=== PATIENT | female | born 2000 | race African-American/Black ===

== ENCOUNTER 2020-11-24 09:15 | Outpatient (RCR) | payer BC, MEDICAID, SELFPAY ==
--- NOTE | 2020-11-10 10:10 | PTOPEVAL ---
Thank you for referring Drea Kline to [facility].? The patient is scheduled to be seen for therapy? 1x/week for 6 weeks. Please review, sign, date and return this plan of care MARIA ELENA. I agree with and certify that the following plan of care is medically necessary. Referring Physician Date Attending Provider: Kathie Rocha MD Referring Provider: Kathie Rocha MD Evaluation Information Problem Diagnosis scoliosis, back pain Onset 3 yrs Subjective Information Reports she has been having Query Text:As Reported By Patient/ back pain for a long time. Family Denies previous therapy. Denies exercise program. 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 Reports increased pain with prolonged standing and walking. Denies pain with lifting, legal support manager or ADL's. She is able to stand 1 hr before pain increases. Diagnostic Tests X-Rays For This Problem Yes: thoracic scoliosis Previous Treatments Previous Treatments For This Problem no Pain Assessment Pain Scale Used Numeric (1 - 10) Self Report Pain Assessment Bilateral Lower Back Reported Pain Level 2 Pain Description Aching Pain Frequency Chronic,Continuous Lowest Pain Intensity 2 Greatest Pain Intensity 8 Pain Aggravating Factors Prolonged Position,Walking, Weight Bearing/Standing Cervical and Lumbar ROM Lumbar Flexion Active Floor Query Text:Hands to: Lateral Flexion below lateral knee region Query Text:Active Hands to: Lumbar ROM WNL Lumbar Comments slight pain with ext Upper Extremity Range of Motion General Upper Extremity Range of Motion WNL/Left,WNL/Right Lower Extremity Range of Motion General Lower Extremity Range of Motion WNL/Left,WNL/Right Cervical and Lumbar Muscle Testing Lumbar Strength Upper Abdominal Strength 3 Fair Lower Abdominal Strength 3 Fair Upper Back Extension 4 Good Lower Back Extension 4 Good Lumbar Functional Strength Comments unable to maint trunk in midline with seated marching or standing SLS Lower Extremity Muscle Strength Testing Gross Lower Extremity Strength grossly 4/5 gretel LE for hip flex, knee ext and flex gretel hip ext: 3+/5, hip abd: 3/ 5 Upper Extremity Muscle Strength Testing Gross Upper Extremity Strength Comments grossly 4-/5 for all motion, no pain Muscle Length Testing Two-Joint Hip Flexor Shortened Muscles Short
--- NOTE | 2020-11-17 09:48 | PCPTNOTE ---
Patient no show for apt this date. Called and left voicemail of missed apt and reminded of next scheduled apt on november 24 at 9:15am.
--- NOTE | 2020-12-01 09:34 | PCPTNOTE ---
Pt called and canceled appointment this date due to being sick.
--- NOTE | 2020-12-15 09:16 | PCPTNOTE ---
Addendum entered by Nydia Gonzalez, DIGITAL IMAGER 12/15/20 09:26: Pt called 12/01/20 at 8:30 am and canceled both 12/01/20 and 12/08/20 appointments for 09:15am. This was the Pt's first and second cancels. Original Note: Late entry: Pt called on 12/08/20 at 08:30am to cancel appointment at 09:15am due to being sick. This was Pt's second cancel.
--- NOTE | 2020-12-15 09:26 | PCPTNOTE ---
Patient did not show up for scheduled appointment this date.Called pt due to repeated no show/cancelled visits. Will remove remaining visits and D/C due to exceeding cancelation policy.
--- NOTE | 2020-12-15 09:28 | PCPTNOTE ---
Admitting Provider: Attending Provider: Kathie Rocha Patient:Drea Kline Date of :2000 Discharge Note Patient has not returned for any further treatments since 11/24/2020, therefore she will be discharged at this time. Patient?s initial visit was on 11/10/2020 09:00 and she had a total of 2 visits and 4 no show/canceled visits. The goals have been not met due to poor compliance with attending therapy. Thank you for referring this patient to [facility]. Please review, sign, date and return this discharge summary MARIA ELENA. I have been updated about the patient's current status and I agree with discharge from the above service at this time. Referring Physician Date
== END 2020-12-15 13:23 | disposition home or self-care (01) ==
LOC: ANHPT 09:15
DX: M41.9 Scoliosis, unspecified (principal)
CPT/HCPCS: 97014; 97110; 97140; 97161; G0283

== ENCOUNTER 2021-08-08 18:04 | Emergency (ER) | payer BC, SELFPAY ==
--- NOTE | ~2021-08-08 | XR_ITS ---
EXAMINATION: XR chest 2V DATE: 08/08/2021 19:15 INDICATION: Chest pain and 7 days of cough TECHNIQUE: frontal and lateral views of the chest were obtained. COMPARISON: None FINDINGS: The lungs are clear with no focal airspace opacities, pulmonary edema, pleural effusion or pneumothor ax. The cardiomediastinal silhouette is normal. Visualized bones and soft tissues are unremarkable. IMPRESSION: 1. Normal chest radiograph. Reviewed, dictated and finalized at location A. ENTIALING COORDINATOR IMPRESSION: 1. Normal chest radiograph.
[2021-08-08 18:40] VITALS: BP 133/80; PULSE 91; RESP 16; TEMP 36.8; O2SAT 100
--- NOTE | 2021-08-08 18:59 | ED.URI ---
HPI - URI/Sore Throat General Chief Complaint: Upper Respiratory Infection Stated Complaint: cp/cough Time Seen by Provider: 08/08/21 18:59 Source: patient Mode of arrival: ambulatory Limitations: no limitations History of Present Illness HPI Narrative: Drea Kline is a 20-year-old female comes to [facility] with a cough x 7 days -states that she coughed so hard that her chest started hurting at night she the cough is worse. She has been feeling physically well for the last couple of days. States that her fever and body aches left after the first day or 2 of her symptoms Related Data Allergies Allergy/AdvReac Type Severity Reaction Status Date / Time No Known Allergies Allergy Verified 08/08/21 19:09 Review of Systems Review of Systems: CONSTITUTIONAL: Denies fever, chills, sweats. EYES: Denies visual changes, redness, discharge. ENT: Denies rhinorrhea, is congestion, has sore throat, otalgia. CARDIOVASCULAR: Denies chest pain, palpitations, edema. Chest wall pain RESPIRATORY: Denies dyspnea, wheezing, cough GASTROINTESTINAL: Denies abdominal pain, nausea, vomiting, diarrhea. GENITOURINARY: Denies dysuria, hematuria, abnormal discharge SKIN: Denies rash or itching. NEUROLOGIC: Denies numbness, or focal weakness. PSYCHIATRIC: Denies anxiety or depression. [facility] Past Medical History Medical History No acute medical problems Social History Social History (Updated 08/08/21 @ 19:05 by Corrine Cisneros CNP) Smoking status: Never smoker Alcohol intake: never Comments At time of signature, I agree with nursing past medical, surgical, social and family history. There is no relevant family history pertinent to the presenting complaint. Exam Narrative: GENERAL: This is a well-nourished, well-developed patient, in mild distress. HEAD: normocephalic, atraumatic. EYES: Sclera clear/white. Vision is grossly intact. EARS: External ears normal, auditory canals clear and without drainage, TMs normal without perforation. Hearing grossly intact. NOSE: External nose normal without nasal discharge, nares without redness, no rhinorrhea. THROAT: Mucous membranes moist, posterior pharynx erythema NECK: Neck supple, non-tender CARDIOVASCULAR: Regular rate and rhythm without murmurs, gallops, or rubs. RESPIRATORY: Clear to auscultation. Breath sounds equal bilaterally. No wheezes, rales, or rhonchi. GASTROINTESTINAL: Abdomen soft, non-tender, SKIN: warm, intact with no suspicious lesions or rash, good texture and turgor. NEURO: awake, alert, and oriented to person, place and time. There were no obvious focal neurologic abnormalities. Steady gait EXTREMITIES: Normal range of motion. BACK: Nontender without deformity Course Course Emergency Course: Patient is here for complaints of cough and chest heaviness that started 7 days ago when she had a fever and upper respiratory symptoms have improved with cough is remained she is now 7 days into the illness and states that chest heaviness is worse when she lays down at night Chest x-ray done-normal chest film Started on prednisone, Zithromax, Zyrtec, albuterol inhaler Vital Signs Vital signs: Vital Signs Temperature 98.3 F 08/08/21 18:40 Pulse Rate 91 08/08/21 18:40 Respiratory Rate 16 08/08/21 18:40 Blood Pressure 133/80 08/08/21 18:40 Pulse Oximetry 100 08/08/21 18:40 Temperature 98.3 F 08/08/21 18:40 Pulse Rate 91 08/08/21 18:40 Respiratory Rate 16 08/08/21 18:40 Blood Pressure 133/80 08/08/21 18:40 Pulse Oximetry 100 08/08/21 18:40 MDM - URI/Sore Throat Differential Diagnosis Differential diagnosis: Likely upper respiratory infection, viral infection, bronchitis, pharyngitis and other Critical Care Time Critical Care Time Critical Care Time: No Discharge Plan Discharge Clinical Impression: Bronchitis Patient Disposition: Home, Self-Care Condition: Stable
== END 2021-08-08 19:49 | disposition home or self-care (01) ==
PROVIDERS: Emergency Provider Nurse Practitioner
DX: J40 Bronchitis, not specified as acute or chronic (principal)
CPT/HCPCS: 71046; 99213; G0463

== ENCOUNTER 2021-09-17 11:27 | Outpatient (CLI) | payer BC, SELFPAY ==
--- NOTE | ~2021-09-17 | US_ITS ---
US breast RT complete 09/17/2021 11:47 Indication: Palpable right breast lump which has recently increased in size Procedure: High-resolution complete right breast ultrasound Comparison: No prior studies for comparison. Findings: At 9:00, 8 cm from the nipple there is an irregular shaped heterogeneous hypoechoic mass wi th internal vascularity and mixed posterior attenuation measuring 3.5 x 3 x 2.4 cm. No other masses a re identified. Impression: 1: Irregular shaped hypoechoic right breast mass at 9:00, 8 cm from the nipple measuring 3.5 cm maxim um dimension. BI-RADS CATEGORY 4-SUSPICIOUS ABNORMALITY RECOMMENDATION: Ultrasound-guided right breast biopsy recommended. Reviewed, dictated and finalized at location A. T END SOFTWARE ENGINEER Impression: 1: Irregular shaped hypoechoic right breast mass at 9:00, 8 cm from the nipple measuring 3.5 cm maximum dimension. BI-RADS CATEGORY 4-SUSPICIOUS ABNORMALITY RECOMMENDATION: Ultrasound-guided right breast biopsy recommended.
== END 2021-09-17 11:28 | disposition home or self-care (01) ==
LOC: ANHIMG 11:30
PROVIDERS: Visit Provider Obstetrics & Gynecology
DX: N63.10 Unspecified lump in the right breast, unspecified quadrant (principal); R92.8 Other abnormal and inconclusive findings on diagnostic imaging of breast
CPT/HCPCS: 76641

== ENCOUNTER 2021-09-28 10:21 | Outpatient (CLI) | payer BC, SELFPAY ==
[2021-09-28 10:50] LABS: Alanine Aminotransferase 20 U/L (4-35); Albumin Level 4.9 g/dL (3.5-5.1); Alkaline Phosphatase 56 U/L (38-126); Anion Gap 6 mmol/L (8-16); Aspartate Amino Transferase 29 U/L (14-36); Bilirubin,Total 0.4 mg/dL (0.2-1.3); Blood Urea Nitrogen 12 mg/dL (7-17); Calcium 9.4 mg/dL (8.4-10.2); Carbon Dioxide 26 mmol/L (22-30); Chloride 106 mmol/L (98-107); Estimated Glomerular Filt Rate > 60; Glucose 96 mg/dL (65-110); Sodium 138 mmol/L (137-145)
[2021-10-01 14:59] LABS: Prolactin 7.4 ng/mL (***)
[2021-10-03 07:26] LABS: Testosterone Total 16 ng/dL (2-45)
== END 2021-09-28 10:22 | disposition home or self-care (01) ==
LOC: ANHLAB 10:23
PROVIDERS: Visit Provider Internal Medicine
DX: Z00.00 Encounter for general adult medical examination without abnormal findings (principal); R68.82 Decreased libido
CPT/HCPCS: 36415; 80053; 84146; 84403; 84443

== ENCOUNTER 2021-10-02 09:19 | Outpatient (CLI) | payer BC, SELFPAY ==
--- NOTE | ~2021-10-02 | MMUS_ITS ---
MM post biopsy invasive RT, US breast biopsy RT w image EXAMINATION: US GUIDED NEEDLE BIOPSY WITH VAC UUM ASSISTANCE DATE: 10/02/2021 10:12 DIRECTOR MARKET RESEARCH INDICATION: Right breast mass seen on prior examination. Ultrasound-guided core biopsy is requested to evaluate for malignancy. TECHNIQUE AND FINDINGS: The risks and potential benefits of the procedure were discussed with the patient, and written inform ed consent was obtained. After sterile preparation of the right breast, 1% lidocaine was utilized fo r local anesthesia. 1% lidocaine with epinephrine was used for deep anesthesia. A 10G vacuum-assisted biopsy gun needle was advanced through to the outer edge of the region of inter est from a lateral approach utilizing sonographic guidance. A total of 5 tissue core samples were ob tained through the lesion. An Inrad tissue marker clip was then placed at the biopsy site. Hemostasi s was achieved. The patient tolerated procedure well and there was no evidence of immediate complication. The patien t was given verbal instructions partly is from the department. Right breast mammograms to document t issue marker clip placement. The tissue samples were submitted to surgical pathology for histologic a nalysis. IMPRESSION: 1. Successful ultrasound-guided vacuum-assisted biopsy of right breast mass with tissue marker place ment. Please refer to pathology report for histologic analysis. Reviewed, dictated and finalized at location A. CTOR MARKET RESEARCH IMPRESSION: 1. Successful ultrasound-guided vacuum-assisted biopsy of right breast mass wi th tissue marker placement. Please refer to pathology report for histologic darius lysis.
== END 2021-10-02 09:20 | disposition home or self-care (01) ==
LOC: ANHIMG 09:24
PROVIDERS: Visit Provider Obstetrics & Gynecology
DX: R92.8 Other abnormal and inconclusive findings on diagnostic imaging of breast (principal)
CPT/HCPCS: 19083; 88305; A4648

== ENCOUNTER → 2021-11-09 04:15 | Outpatient (CLI) | payer BC, SELFPAY ==
[2021-11-09 12:00] LABS: SARS-CoV-2 RNA PCR Negative
== END ==
PROVIDERS: Visit Provider Surgery
DX: Z01.812 Encounter for preprocedural laboratory examination (principal); Z20.822 Contact with and (suspected) exposure to COVID-19
CPT/HCPCS: C9803; U0003; U0005

== ENCOUNTER 2021-11-12 00:34 | Day surgery (SDC) | payer BC, SELFPAY ==
[2021-11-02 14:02] VITALS: BMI 21.9
--- NOTE | 2021-11-02 14:09 | PC.NURSE ---
Report to the Outpatient Waiting Room, entrance under the green pavilion located off [facility], at time 1130 on date 11/12/21. OR Time: 1330. - You will be asked a series of questions to screen for COVID 19 for your protection. - A mask is required within the hospital. - No visitors are allowed at this time. Preoperative COVID Testing Requirements: COVID TEST 11/09 AT 0900 No COVID Test needed if: (proof is required; if not received patient will have Rapid Test prior to entry) - Patient has received COVID Vaccine at least 14 days prior to procedure date or - Patient has positive COVID test result within last 90 days of surgery date. COVID Test needed if above criteria is not met If not COVID vaccinated a COVID test must be conducted within 72 hours of surgery and patient is asked to isolate self from time of testing until procedure. You will go to the [facility] for your COVID testing. The [facility] site is located at the corner of [address] [facility]. You will only be called if COVID results are positive and your surgeon may reschedule your elective surgery date. Patients may have clear liquids (water, carbonated beverages, clear teas, apple juice) until 3 hours prior to surgery with a maximum of 20 ounces. - No food from midnight until time of surgery Take the following medications with a SIP of water the morning of surgery: NONE Medications to discontinue per physician: N/A Date to take last dose: N/A Please no make-up, nail tongan, hairspray, perfume, deodorant, or body powder the day of surgery. No jewelry (including any body piercings) or valuables the day of surgery, leave them at home. Please take a shower or bath the night before, or the morning of, surgery with an antibacterial soap. Wear comfortable, loose fitting clothing. - Jewelry must be removed prior to entering the operating room. Rings and piercings that are not removed may be cut off. - The hospital will not accept responsibility for valuables. - Please leave all valuables, including medications, at home the day of surgery. If you are going home after surgery, a licensed class c driver must drive you home. - NO public transportation without another adult. - We recommend that an adult stay with you for 24 hours following discharge. - We also recommend that you do not drive, make important decision, drink alcoholic beverages, or take any drugs that were not prescribed by your health care provider for at least 24 hours after your discharge time. Follow any additional instructions given to you from your surgeon. Telephone instructions given to ENRIQUE LANDIN and asked if any additional questions and then verbalized understanding. Patient advised to call surgeon office or pre surgery nurse liaison [phone] if any additional questions.
[2021-11-12] VITALS (7 sets, daily range): BP systolic 105–122; BP diastolic 62–78; PULSE 65–108; RESP 11–18; TEMP 36.9; O2SAT 98–100
--- NOTE | ~2021-11-12 | MM_ITS ---
MM surgical specimen RT DATE: 11/12/2021 14:59 INDICATION: Surgical excision of biopsy marker TECHNIQUE: Single noncompression digital mammographic exposure of the right breast COMPARISON: 10/02/2021 right postbiopsy diagnostic mammogram FINDINGS: The biopsy marker and appears to be a large soft tissue mass are present within the surgica l soft tissue specimen. IMPRESSION: Successful surgical excision of biopsy marker and apparently a large soft tissue mass Reviewed, dictated and finalized at Location A. Reviewed, dictated and finalized at location A. ESSOR OF PSYCHIATRY IMPRESSION: Successful surgical excision of biopsy marker and apparently a larg e soft tissue mass
[2021-11-12] MEDS: ACETAMINOPHEN 500 MG TABLET 1000 MG PO (12:22)
[2021-11-12] MEDS: LACTATED RINGERS 1,000 ML 30 ML IV CONT (12:22)
[2021-11-12] MEDS: KETOROLAC 15 MG/ML VIAL (*BKC) IV PUSH (12:22)
--- NOTE | 2021-11-12 13:10 | WPDHPUPDATE1 ---
History and Physical Update Update Date/Time: 11/12/21 13:10 History and Physical has been reviewed, including an updated exam of the patient. There are NO changes in the patient's condition. Risks, benefits, and alternatives of an excision of a Rt. breast mass (benign) have been discussed and questions answered. Patient agrees to proceed with procedure.
--- NOTE | 2021-11-12 13:19 | P.PNAN_ITS ---
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 Patient Data Age: 21 Gender: F Height: 1.7 m Weight: 66.8 kg Last Vital Signs Temp 36.9 C 11/12/21 12:37 Pulse 70 11/12/21 12:37 Resp 18 11/12/21 12:37 BP 117/62 11/12/21 12:37 Pulse Ox 100 11/12/21 12:37 Allergies Allergy/AdvReac Type Severity Reaction Status Date / Time No Known Allergies Allergy Verified 11/02/21 14:02 Home Medications Medication Instructions Recorded Confirmed Type No Home Medications 11/02/21 11/12/21 History Patient hx anesthesia problems: other (motion sickness) Family hx anesthesia problems: none Results Review: All pre-operative results and documents have been reviewed as part of the pre-operative evaluation. 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 Informed Consent: The patient's anesthetic plan and its attendant risks and benefits were discussed with the patient/family/POA. Questions were solicited and answers provided to the satisfaction of the patient/family/POA.
[2021-11-12] MEDS: ceFAZolin 2 GM/D5W 50 ML 2 GM/50 ML BAG IVPB (13:40)
[2021-11-12] MEDS: SCOPOLAMINE 1.5 MG PATCH TRANSDERM (13:53)
[2021-11-12] MEDS: BUPIVACAINE/EPINEPHRINE 0.25% 10 ML VIAL INFILTRATE (14:34)
--- NOTE | 2021-11-12 14:57 | W.PM.PROC2 ---
Procedure Note - Detailed Date of Procedure 11/12/21 Pre-op Diagnosis Fibroadenoma Right Breast (3.5 cm in largest dimension by US). Post-op Diagnosis same Procedure Performed Excision of right breast mass Surgeon Duane Bowman MD Siebel Solution Architect JENNIFER Monzon, [facility] Anesthesia general (With use of LMA) Indications Patient has had an enlarging mass in the upper lateral portion of her right breast for some time. Her OB Gyne E ordered a core biopsy of this and that was done via ultrasound and showed fibroadenoma. Because it was continue to give the patient some discomfort and was enlarging she came to me and we discussed the various options for care. Most likely this will not go away and since it was causing her some discomfort she opted to have it surgically excised. She knows that is benign and that we could observe it with serial ultrasound as the other option. She decided to have it removed. Findings Dense fibrous breast tissue surrounded the palpable fibroadenoma min medial and anterior to the lesion. There was a palpable 3 x 4 cm mass that was excised completely. Description of Procedure Patient was brought to the operating room and moved from the OR cart to the OR table. Her right arm was placed out on arm board. After induction of adequate general anesthesia (LMA) the patient's entire right breast and axilla were prepped and draped in usual sterile fashion. Time-out was performed confirming patient and site of surgery being the lateral right breast. Following this the palpable mass was localized in the upper outer quadrant and I stabilized it with my left hand between my thumb and forefinger. A transverse incision was outlined directly over the palpable lesion which was just posterior to the small scar from her previous core biopsy. Local anesthetic using 0.25% Marcaine with epinephrine was infiltrated into the skin and subcutaneous tissues. Following this a 15 blade knife was used to make an incision directly over the lesion and it was carried down through the subcutaneous tissues and breast tissue until we came to the easily palpable fibrous mass. I then grasped the fibrous mass with an Allis forceps. We then used retractors in all directions to gradually surround an excise the mass using Bovie cautery. It was completely excised with a narrow rim of normal breast tissue surrounding it. Eventually it was easiest to rotate it from lateral to medial and lift it up in out of the breast. We did run into 1 good size arteriole posteriorly and laterally which was suture ligated with 3-0 Vicryl. Bovie cautery was otherwise used for hemostasis and the entire lesion was lifted up and out of the incision. It was placed on a sterile towel and then I marked it with a long suture lateral and short suture superior and sent it for specimen mammogram, since the patient had had a core biopsy of it before. I wanted to prove that we had removed the lesion that was biopsied. While we awaited report from Mammography, we checked for hemostasis which appeared to be good. Bovie cautery was used to stop a few small of bleeders in the breast tissue and then as we waited several 3-0 Vicryl sutures were used to approximate the subcutaneous tissues and dermis along the length of the incision. Mammography called back stating that there was a clip within the Rt. breast specimen sent to them. This will be passed on to pathology in a fresh state. We did gris on the pathology slip that the patient had had a previous core biopsy here at [facility]. Following this skin was closed with a running subcuticular closure 4-0 Monocryl area was cleansed surgical glue applied. Dressing with a small piece of Telfa covered with some paper tape was applied after the glue was dry. Estimated blood loss was approximately 7 cc. The patient was taken recovery room in good condition. Implants None Estimated Blood Loss 7 Drains No Packing No Pathology yes (Right breast m
--- NOTE | 2021-11-12 15:07 | SUR.PHASEI ---
1506-DR. GALINDO AT [facility] TO SPEAK WITH PT.
[2021-11-12] MEDS: fentaNYL CITRATE INJ (*CRX) 100 MCG/2 ML VIAL 25 MCG IV PUSH ×3 (15:12→15:31)
[2021-11-12] MEDS: oxyCODONE HCL (*CRX) 5 MG TAB IR PO (16:05)
== END 2021-11-12 16:31 | disposition home or self-care (01) ==
PROVIDERS: Visit Provider Surgery
PROC: (CPT 19120; principal; 2021-11-12 13:30)
DX: D24.1 Benign neoplasm of right breast (principal); N60.21 Fibroadenosis of right breast; F41.9 Anxiety disorder, unspecified
CPT/HCPCS: 19120; 76098; 88307; A9270; J0690; J1100; J1885; J2250; J2405; J2704; J3010; J7120